=== PATIENT | female | born 1940 | race Caucasian/White ===

== ENCOUNTER → 2016-11-12 | Outpatient (CLI) | payer OTHER ==
--- NOTE | 2016-11-12 11:00 | RAD ---
HISTORY: Right knee pain. Complete four view series of the right knee joint. Comparisons: none. Findings: Examination of the right knee demonstrate no evidence for acute fracture, subluxation, or dislocatio n. The medial and lateral tibiofemoral compartments demonstrate mild joint space narrowing and dann inal osteophyte formation. The findings are compatible with mild degenerative joint disease. The l ateral radiograph fails to demonstrate significant joint effusion. Patellofemoral compartment shows mild DJD and mild chondromalacia patella. IMPRESSION: Mild tricompartmental knee joint osteoarthritis, worse medially. Reported By:
--- NOTE | 2016-11-12 17:08 | RAD ---
Right foot, three views Indication: Foot pain Comparison: None Findings: Prior osteotomy of the 1st ray is noted. The screws within the 1st metatarsal appear well positioned without complication. There is moderate lucency about the screw within the great toe prox imal phalanx, measuring up to 4 mm, suggestive for loosening. There are mild degenerative changes th roughout the forefoot. A tiny corticated ossific density adjacent to the base of the 5th metatarsal is compatible with sequela from remote injury. Mild hindfoot enthesopathy is noted. No acute osseous or soft tissue abnormality is seen. Impression: No acute osseous abnormality. Prior 1st ray osteotomy with moderate perihardware lucency about the great toe proximal phalanx scre w, suggestive for loosening. Reported By:
== END ==
LOC: RAD 08:37
PROVIDERS: ATTEND Orthopaedic Surgery
DX: M25.561 Pain in right knee (principal); M79.671 Pain in right foot; M17.11 Unilateral primary osteoarthritis, right knee
CPT/HCPCS: 73564; 73630